=== PATIENT | female | born 1960 | race Caucasian/White ===

== ENCOUNTER 2018-02-23 07:49 | Inpatient (IN) ==
[2018-02-23] MEDS ORDERED: KETOROLAC TROMETHAMINE 60 MG/2 ML VIAL IM ONE ×2 (08:25→08:27)
--- NOTE | 2018-02-23 08:28 | ERNOTE ---
Back Pain ER HPI Presenting Symptoms: other - right flank pain Time Seen by Provider: 02/23/18 08:03 Source: patient Exam Limitations: no limitations Immunizations: IMMUNIZATION HX Immunizations Up to Date Yes History of Influenza Vaccine No Hx Pneumococcal Vaccination No Allergies/Adverse Reactions: Allergies morphine Allergy (Severe, Verified 02/23/18 08:04) Hives Home Medications: HOME MEDICATIONS Lisinopril [Zestril] 40 mg PO DAILY 11/22/13 [Last Taken 09/18/14] Metoprolol Succinate [Toprol Xl] 25 mg PO DAILY 11/22/13 [Last Taken 09/18/14] Levothyroxine Sodium 06/05/14 [Last Taken 09/18/14] Azithromycin 02/23/18 [Last Taken Unknown] Prednisone 02/23/18 [Last Taken Unknown] Narrative: An hour or so before arrival to the ER patient developed sudden right flank pain and she noticed blood in urine. She rates the pain as well as moderate in severity and somewhat crampy in nature. Timing: Reports: intermittent Quality/Severity: Reports: moderate Location of pain: Reports: other - right flank Activities at Onset: Reports: none Recent Injury?: Reports: no Possible Precipitating Factor: Reports: none Modifying Factors - (Improves): Reports: nothing Modifying Factors - (Worsens): Reports: nothing Associated Symptoms: Denies: fever/chills, sweating Review of Systems - Review of Systems Constitutional: Present: See HPI EYE: Present: no symptoms reported ENT: Present: no symptoms reported Respiratory: Present: no symptoms reported Cardiology: Present: no symptoms reported Gastrointestinal/Abdominal: Present: no symptoms reported Genitourinary: Present: See HPI Musculoskeletal: Present: no symptoms reported Skin: Present: no symptoms reported Neurological: Present: no symptoms reported Endocrine: Present: no symptoms reported Hematologic/Lymphatic: Present: no symptoms reported Psych: Present: no symptoms reported Medical History (Last Updated 02/23/18 @ 08:03 by Bob Alberto RN) H/O: hysterectomy History of appendectomy Hypertension Hypothyroidism Low vitamin D level Previous back surgery Renal calculi Social History: Preferred Language Senegalese Do you have any catholic or Yes: yazidism cultural preference? Smoking Status Current every day smoker Have you smoked in the past 12 Yes months Abuse History No History of abuse Psych History No pertinent hx Alcohol Use rarely Drug Use none Physical Exam - Physical Exam General Appearance: Present: wd/wn, alert, moderate distress Head Exam: Present: normal inspection, no evidence of injury Eye Exam: Normal inspection: bilateral, PERRL: bilateral Ears, Nose, Throat: Present: normal ENT inspection, H, normal pharynx Neck: Present: normal inspection, nontender Respiratory: Present: no respiratory distress, normal breath sounds, no accessory muscle use, chest nontender, lungs clear Cardiovascular/Chest: Present: regular rate, rhythm, no murmur, normal peripheral pulses Gastrointestinal/Abdominal: Present: normal bowel sounds, nontender, nondistended, soft, no organomegaly Rectal Exam: Present: deferred Back Exam: Present: normal range of motion, CVA tenderness (R) Extremity Exam: Present: normal inspection, non-tender, no edema, normal range of motion Neurological Exam: Present: alert, oriented, normal mood/affect Skin Exam: Present: normal color, warm/dry Lymphatic Exam: Present: no adenopathy ED Progress - Results and Orders Patient's Lab Results:: I have reviewed the patient's lab results. - Vital Signs Patient's Vital Signs:: I have reviewed the patient's vital signs. Vital Signs: Vital Signs 02/23/18 07:57 Temperature 36.7 C Pulse Rate 56 L Respiratory Rate 14 Blood Pressure 180/84 H O2 Sat by Pulse Oximetry 98 - CT/Ultrasound CT/Ultrasound Narrative: CT of the abdomen and pelvis was reviewed by me - Progress/Reassessment Chief Complaint: Back Pain Plan - Plan Plan: I discussed the case with urology as well as the on-call hospitalist and the patient will be admitted to an observation bed for hydration, pain control and IV antibiotics. Patient appears to have an infected stone in the right ureter and an obstruction secondary to the stone. Patient will most likely get a stent in her right ureter tomorrow after we have 24 hours of antibiotics on board. Departure Clinical Impression: Acute pyelonephritis, Kidney stone on right side, Ureteral obstruction, right - Departure Disposition: Still a patient Condition: Fair Referrals: Sandie Haji, [employer] [Primary Care Provider] -
[2018-02-23 09:11] LABS: Urine Bilirubin Negative (NEGATIVE); Urine Blood 250 /ul (NEGATIVE); Urine Ketone Negative (NEGATIVE); Urine Specific Gravity >=1.030 SP.GR. (1.005-1.010); Urine Urobilinogen Normal (NORMAL)
[2018-02-23 09:16] LABS: Urine Color Red
[2018-02-23 09:17] LABS: Urine Appearance Bloody (CLEAR); Urine Bacteria 2+; Urine Nitrite Positive (NEGATIVE); Urine Protein 500 mg/dL (NEGATIVE); Urine RBC >50 /hpf (0-5)
[2018-02-23] MEDS ORDERED: NORMAL SALINE 1,000 ML IV ONE (11:14)
[2018-02-23 11:40] LABS: Hematocrit 42.4 % (37.0-47.0); Hemoglobin 13.9 gm/dL (12.5-16.0); Mean Cell Volume 94.2 fl (78-100); Mean Corpuscular Hemoglobin 30.9 pg (27-31); Mean Corpuscular Hgb Conc 32.8 g/dl (32-36); Mean Platelet Volume 10.6 fl (8-12.5); Neutrophil # 4.9 K/mm3 (1.3-6.0); Platelet Count 272 K/mm3 (150-450); Red Cell Distribution Width 13.2 % (11.5-14.0); White Blood Count 8.5 K/mm3 (4.0-10.5)
[2018-02-23 11:59] LABS: Albumin * 3.8 gm/dl (3.4-5.0); Anion Gap 11.4 mmol/L (6.8-13.8); BUN/Creatinine Ratio 27.3 (9.0-21.6); Bilirubin, Total 0.2 mg/dL (0.0-1.1); Calcium * 9.2 mg/dL (7.9-10.9); Carbon Dioxide 30.3 mmol/L (24-32.6); Potassium 3.7 mmol/L (3.4-4.6); Total Protein 7.4 gm/dL (6.2-8.2)
[2018-02-23] MEDS: traMADol HCL 50 MG TABLET PO PRN ×2 (15:38→23:55)
[2018-02-23] MEDS: hydrALAZINE HCL 20 MG/ML VIAL IV PRN (15:46)
[2018-02-23] MEDS: ENOXAPARIN SODIUM 40 MG/0.4 ML SYRG SC SCH (16:59)
--- NOTE | 2018-02-23 20:45 | HP ---
Chief Complaint - Chief Complaint Date of Service: 02/23/18 Time of Service: 14:44 Chief Complaint: flank pain History of Present Illness: 57 year old female presented to the ER with sudden onset R sided flank pain earlier in the day. She also noticed blood in her urine not long after the pain began. She had a CT scan of the abdomen in the ER showing a large obstructing stone in the R ureter at the ureteropelvic junction. Urology was consulted from the ER who plans to place a stent tomorrow morning. They wanted her to get two doses of rocephin in prior to the stenting. She denied urinary symptoms other than suprapubic pain. Her ua in the ER was consistent with acute cystitis with hematuria. Her pain when seen was a 7 out of 10. She has a hx of HTN, hypothyroidism, and prior renal calculi. She also stated that she takes norco for migraines. She took her medication this morning. Medical History (Last Updated 02/23/18 @ 12:53 by Lorena Vidal RN) Renal calculi Hypertension Hypothyroidism Low vitamin D level Surgical History: Surgical History (Last Updated 02/23/18 @ 14:23 by Lorena Vidal RN) History of appendectomy History of hysterectomy Previous back surgery Family History: Family History (Last Updated 02/23/18 @ 12:42 by Lorena Vidal RN) Father Mother Diabetes CHF (congestive heart failure) Social History: Patient Lives/Resources With Spouse Utilized Occupation [employer]; [employer] leader Preferred Language Pashto Do you have any druze or Yes: Muslim cultural preference? Smoking Status Current every day smoker Have you smoked in the past 12 Yes months Do you dip or chew tobacco No Abuse History No History of abuse Psych History No pertinent hx Alcohol Use rarely Drug Use none Review Of Systems (GEN) - Review of Systems Generalized/Overall Review: Present: No Symptoms Reported EENTM: Present: No Symptoms Reported Respiratory: Present: No Symptoms Reported Cardiac: Present: No Symptoms Reported Abdominal: Present: No Symptoms Reported Genitourinary: Present: Hematuria Musculoskeletal: Present: Back Pain - Right sided pain Neurological: Present: No Symptoms Reported Skin: Present: No Symptoms Reported Endocrine: Present: No Symptoms Reported Immunizations: IMMUNIZATION HX Immunizations Up to Date Yes History of Influenza Vaccine No Hx Pneumococcal Vaccination No Allergies/Adverse Reactions: Allergies Allergy/AdvReac Type Severity Reaction Status Date / Time morphine Allergy Severe Hives Verified 02/23/18 08:04 Home Medications: HOME MEDICATIONS Lisinopril [Zestril] 40 mg PO DAILY 11/22/13 [Last Taken 09/18/14] Levothyroxine Sodium [Synthroid] 25 mcg PO DAILY 06/05/14 [Last Taken 09/18/14] Azithromycin [Zithromax] 500 mg PO DAILY 02/23/18 [Last Taken Unknown] Metoprolol Succinate 200 mg PO DAILY 02/23/18 [Last Taken Unknown] predniSONE [Prednisone] 10 mg PO DAILY 02/23/18 [Last Taken Unknown] Exam - Exam Vital Signs: Vital Signs - Last Taken Temp 36.3 C 02/23/18 12:23 Pulse 63 02/23/18 16:20 Resp 14 02/23/18 12:23 BP 166/83 H 02/23/18 16:20 Pulse Ox 97 02/23/18 12:23 Constitutional: Present: Alert, Oriented x3, Moderate distress Neck: Present: non-tender, full range of motion, supple Back Exam: Present: CVA tenderness (R) Respiratory: Present: lungs clear, normal breath sounds Cardiovascular/Chest: Present: normal peripheral pulses, regular rate, rhythm, no edema Abdomen: Present: Normal bowel sounds, soft, CVA tenderness - R, suprapubic tenderness /Rectal: Present: Exam deferred Skin Exam: Present: normal color, warm/dry Appearance: Present: appropriate appearance, appropriate insight Eye contact: Present: cooperative, good eye contact, normal speech Thoughts: Present: normal thought pattern, normal mood /affect Diagnostic Studies: Abnormal Lab Results 02/23/18 02/23/18 02/23/18 Range/Units 08:59 11:23 11:23 Immature Gran % (Auto) 0.60 H (0.001-0.429) % Immature Gran # (Auto) 0.05 H (0.000-0.0310) K/mm3 BUN/Creatinine Ratio 27.3 H (9.0-21.6) Urine Protein 500 H (NEGATIVE) mg/dL Urine Blood 250 H (NEGATIVE) /ul Urine Nitrate Positive H (NEGATIVE) Prot Sulfosalicylic Acd 3+ H (0) mg/dL Ur Leukocyte Esterase 25 H (NEGATIVE) /ul Urine RBC >50 H (0-5) /hpf Urine WBC 10-25 H (0-5) /hpf Ur Epithelial Cells 5-10 H (0-5) /hpf Urine Bacteria 2+ H (NONE) Laboratory Results WBC 8.5 K/mm3 (4.0-10.5) 02/23/18 11:23 RBC 4.50 M/mm3 (4.2-5.4) 02/23/18 11:23 Hgb 13.9 gm/dL (12.5-16.0) 02/23/18 11:23 Hct 42.4 % (37.0-47.0) 02/23/18 11:23 MCV 94.2 fl (78-100) 02/23/18 11:23 MCH 30.9 pg (27-31) 02/23/18 11:23 MCHC 32.8 g/dl (32-36) 02/23/18 11:23 RDW 13.2 % (11.5-14.0) 02/23/18 11:23 Plt Count 272 K/mm3 (150-450) 02/23/18 11:23 MPV 10.6 fl (8-12.5) 02/23/18 11:23 Immature Gran % (Auto) 0.60 % (0.001-0.429) H 02/23/18 11:23 Immature Gran # (Auto) 0.05 K/mm3 (0.000-0.0310) H 02/23/18 11:23 Neutrophils % 57.0 % (42-75.0) 02/23/18 11:23 Lymphocytes % 35.4 % (20-51) 02/23/18 11:23 Monocytes % 5.8 % (0.0-9) 02/23/18 11:23 Eosinophils % 0.6 % (0.0-3.0) 02/23/18 11:23 Basophils % 0.6 % (0.0-1.0) 02/23/18 11:23 Nucleated RBC % 0.0 k/mm3 (0-1) 02/23/18 11:23 Neutrophils # 4.9 K/mm3 (1.3-6.0) 02/23/18 11:23 Lymphocytes # 3.02 k/mm3 (1.5-3.5) 02/23/18 11:23 Monocytes # 0.5 k/mm3 (0.0-1.0) 02/23/18 11:23 Eosinophils # 0.1 k/mm3 (0.0-0.7) 02/23/18 11:23 Absolute Basophils 0.1 k/mm3 (0.0-0.1) 02/23/18 11:23 Sodium 140 mmol/L (132-142) 02/23/18 11:23 Plasma Sodium 140 mmol/L (130-142) 02/23/18 11:23 Potassium 3.7 mmol/L (3.4-4.6) 02/23/18 11:23 Chloride 102 mmol/L (97-106) 02/23/18 11:23 Carbon Dioxide 30.3 mmol/L (24-32.6) 02/23/18 11:23 Anion Gap 11.4 mmol/L (6.8-13.8) 02/23/18 11:23 BUN 21 mg/dL (3-23) 02/23/18 11:23 Creatinine 0.77 mg/dL (0.4-1.4) 02/23/18 11:23 Est GFR (Non-Af Amer) 82 mL/min (60-130) 02/23/18 11:23 BUN/Creatinine Ratio 27.3 (9.0-21.6) H 02/23/18 11:23 Random Glucose 108 mg/dL (70-110) 02/23/18 11:23 Lactic Acid, Venous 0.5 mmol/L (0.4-2.0) 02/23/18 11:23 Calcium 9.2 mg/dL (7.9-10.9) 02/23/18 11:23 Calcium Adj for Albumin 9.0 mg/dL (8.4-10.2) 02/23/18 11:23 Total Bilirubin 0.2 mg/dL (0.0-1.1) 02/23/18 11:23 AST 15 U/L (0-48) 02/23/18 11:23 ALT 28 U/L (19-67) 02/23/18 11:23 Alkaline Phosphatase 66 U/L (50-170) 02/23/18 11:23 Total Protein 7.4 gm/dL (6.2-8.2) 02/23/18 11:23 Albumin 3.8 gm/dl (3.4-5.0) 02/23/18 11:23 Urine Color Red 02/23/18 08:59 Urine Appearance Bloody (CLEAR) 02/23/18 08:59 Urine pH 6.0 pH (5.0-7.0) 02/23/18 08:59 Ur Specific Leslie >=1.030 SP.GR. (1.005-1.010) 02/23/18 08:59 Urine Protein 500 mg/dL (NEGATIVE) H 02/23/18 08:59 Urine Glucose (UA) Negative mg/dL (NEGATIVE) 02/23/18 08:59 Urine Ketones Negative mg/dL (NEGATIVE) 02/23/18 08:59 Urine Blood 250 /ul (NEGATIVE) H 02/23/18 08:59 Urine Nitrate Positive (NEGATIVE) H 02/23/18 08:59 Urine Bilirubin Negative mg/dl (NEGATIVE) 02/23/18 08:59 Prot Sulfosalicylic Acd 3+ mg/dL (0) H 02/23/18 08:59 Urine Urobilinogen Normal EU/dl (NORMAL) 02/23/18 08:59 Ur Leukocyte Esterase 25 /ul (NEGATIVE) H 02/23/18 08:59 Urine RBC >50 /hpf (0-5) H 02/23/18 08:59 Urine WBC 10-25 /hpf (0-5) H 02/23/18 08:59 Ur Epithelial Cells 5-10 /hpf (0-5) H 02/23/18 08:59 Urine Bacteria 2+ (NONE) H 02/23/18 08:59 Urine Culture Comments Culture to follow 02/23/18 08:59 Assessment/Plan - Assessment/Plan (1) Kidney stone on right side Assessment: Obstructive nephropathy from large kidney stone on the right at ureteropelvic junction. Patient started on rocephin, will continue. Urology to see tomorrow for stenting. Urine and blood cultures pending. Problem: Acute (2) Acute cystitis with hematuria Assessment: On rocephon. Urine cultures pending. Problem: Acute (3) HTN (hypertension) Assessment: Restarted her home medications. Will put hydralazine IV PRN as needed as her BP has been elevated since arrival. Will monitor and adjust as needed Problem: Chronic (4) Hypothyroidism Assessment: Continue levothyroxine. Problem: Chronic
[2018-02-23] MEDS: NORMAL SALINE 1,000 ML IV PRN (20:51)
[2018-02-24] MEDS: NORMAL SALINE 1,000 ML IV PRN ×4 (05:00→23:29)
--- NOTE | 2018-02-24 05:59 | CONS ---
HPI - General Narrative: 57-year-old female with right sided flank pain and an abnormal urinalysis admitted for IV pain and nausea control as well as antibiotics out of concern for possible UTI. Urine was voided. 02/23 CT scan FM: Left 2-3 mm upper pole, faint 7-8 mm right proximal ureteral with hydroureteronephrosis. Prostate small, bladder decompressed. Location: Right flank Duration: Yesterday Severity/Stage: Was severe now mild to moderate Associated Sx's: Some subjective chills, flank pain and nausea Modifying factors: Better with pain medicine although still symptomatic Quality: Colicky past medical history: Stones, hypertension, not diabetic Past surgical history: No prior stone surgery Family history: Noncontributory Social history: Smoker Review of systems: General: subjective fevers and chills whenpain was severe Lungs: smoker, occasional cough, no active shortness of breath Heart: no chest pain GI: did have nausea Endocrine: Nondiabetic Musculoskeletal: Some aches and pains : no gross hematuria 14 point review of systems otherwise negative, important positives noted. - History of Present Illness Allergies/Adverse Reactions: Allergies morphine Allergy (Severe, Verified 02/23/18 08:04) Hives Home Medications: Home Medications Medication Instructions Recorded Last Taken Lisinopril [Zestril] 40 mg PO DAILY 11/22/13 09/18/14 Levothyroxine Sodium [Synthroid] 25 mcg PO DAILY 06/05/14 09/18/14 Azithromycin [Zithromax] 500 mg PO DAILY 02/23/18 Unknown Metoprolol Succinate 200 mg PO DAILY 02/23/18 Unknown predniSONE [Prednisone] 10 mg PO DAILY 02/23/18 Unknown Procedures Application of splint (11/22/13) Dressing of Left Finger using Bandage (11/24/15) Laparoscopy (08/06/01) Local excision of lesion or tissue of bone, other bones (01/10/04) Other dilation and curettage (08/06/01) Medications - Medications Current Medications: Current Medications Enoxaparin Sodium (Lovenox) 40 mg SC Q24H JANEEN Stop: 03/25/18 15:16 Last Admin: 02/23/18 16:59 Dose: Not Given Hydralazine HCl (Apresoline) 20 mg IV [id number] PRN PRN Reason: Hypertension Stop: 03/25/18 15:18 Last Admin: 02/23/18 15:46 Dose: 20 mg Sodium Chloride (Sodium Chloride 0.9%) 1,000 mls @ 125 mls/hr IV .Q8H PRN PRN Reason: HYDRATION Stop: 03/25/18 20:45 Last Admin: 02/24/18 05:00 Dose: 125 mls/hr Tramadol HCl (Ultram) 50 mg PO Q6H PRN PRN Reason: Pain Stop: 03/25/18 15:09 Last Admin: 02/23/18 23:55 Dose: 50 mg Physical Examination - Exam Vital Signs: Vital Signs - Last Taken Temp 97.7 F 02/24/18 04:19 Pulse 56 L 02/24/18 04:19 Resp 16 02/24/18 04:19 BP 160/76 H 02/24/18 04:19 Pulse Ox 95 02/24/18 04:19 O2 Oxygen Delivery Method Room Air Comprehensive Narative: 02/24/18 10:32 General: Nontoxic, not in severe distress currently, looks a little uncomfortable, healthy-appearing Psych: Alert and oriented, mentating well HEENT: EOM grossly intact, no scleral icterus Lungs: Respirations unlabored, clear Abdomen: Benign, soft, no peritoneal signs Neuro: Laying in bed but no focal deficits,, sensation intact Extremities: Moves all 4, good findings dexterity, warm well-perfused Heart: Regular, no JVD Skin: No obvious rash or bruising on exposed skin Back: Mild right sided CVA tenderness, no left - Results and Findings: Narrative: #1 obstructing right stone in the setting of possible infection: Patient has been on antibiotics clinically looks a bit better, stone is large. Trial of passage a little risky with the onboard infection and size of stone with roughly 20% passage rate. Options available today include cystoscopy with retrogrades with attempted right ureteroscopy with laser/basket depending on intraoperative findings. Risks include bleeding/infection including small potential for sepsis/injury to ureter including a avulsion/stricture/perforation and typical stent symptoms all discussed. Patient opting to proceed with intervention I do not disagree. She has been nothing by mouth. She has been on broad-spectrum antibiotics. More than likely will stay overnight to make sure she does not take a step backwards after procedure. I did inform her if evidence of infection behind stone likely to simply stent come back another day same scenario if ureter narrow. Lab/Microbiology results last 24 hrs: Abnormal/Pending Laboratory Last 24 HRS 02/23/18 02/23/18 02/23/18 11:23 11:23 08:59 Immature Gran % (Auto) 0.60 H Immature Gran # (Auto) 0.05 H BUN/Creatinine Ratio 27.3 H Urine Protein 500 H Urine Blood 250 H Urine Nitrate Positive H Prot Sulfosalicylic Acd 3+ H Ur Leukocyte Esterase 25 H Urine RBC >50 H Urine WBC 10-25 H Ur Epithelial Cells 5-10 H Urine Bacteria 2+ H - Assessments/Findings (1) Kidney stone on right side Problem: Acute
[2018-02-24] MEDS: LEVOTHYROXINE SODIUM 25 MCG TABLET PO SCH (06:46)
[2018-02-24] MEDS: traMADol HCL 50 MG TABLET PO PRN ×2 (06:46→14:58)
[2018-02-24] MEDS: ONDANSETRON HCL/PF 2 MG/ML VIAL IV PRN ×2 (08:50→14:58)
[2018-02-24] MEDS: METOPROLOL SUCCINATE 100 MG TABLET.SA PO SCH (09:24)
[2018-02-24] MEDS: LISINOPRIL 40 MG TABLET PO SCH (09:24)
--- NOTE | 2018-02-24 11:27 | ANES ---
Anesthesia Pre Procedure Eval Vitals/Labs: Last Vital Signs Temp 36.6 C 02/24/18 07:21 Pulse 54 L 02/24/18 09:24 Resp 18 02/24/18 07:21 BP 180/82 H 02/24/18 09:24 Pulse Ox 93 02/24/18 07:21 HOME MEDICATIONS Lisinopril [Zestril] 40 mg PO DAILY 11/22/13 [Last Taken 09/18/14] Levothyroxine Sodium [Synthroid] 25 mcg PO DAILY 06/05/14 [Last Taken 09/18/14] Azithromycin [Zithromax] 500 mg PO DAILY 02/23/18 [Last Taken Unknown] Metoprolol Succinate 200 mg PO DAILY 02/23/18 [Last Taken Unknown] predniSONE [Prednisone] 10 mg PO DAILY 02/23/18 [Last Taken Unknown] Allergies/Adverse Reactions: Allergies Allergy/AdvReac Type Severity Reaction Status Date / Time morphine Allergy Severe Hives Verified 02/23/18 08:04 - Planned Procedure Planned Procedure: PYELONEPHRITIS,KIDNEY STONE OBSTRUCTION Medication List Reviewed:: Yes Allergies Verified: Yes Medical History (Last Reviewed 02/24/18 @ 11:26 by Prakash Rodriguez CRNA) Renal calculi Hypertension Hypothyroidism Low vitamin D level Surgical History (Last Reviewed 02/24/18 @ 11:27 by Prakash Rodriguez CRNA) History of appendectomy History of hysterectomy Previous back surgery Family History (Last Reviewed 02/24/18 @ 11:27 by Prakash Rodriguez CRNA) Father Mother Diabetes CHF (congestive heart failure) - Family Anesthesia History Family History:: no untoward family reactions to anesthesia - Airway/Neck/Teeth Teeth Condition: Intact Neck Exam: full range of motion, normal inspection Mallampatti Score: 1 Thyromental (T-M) distance: > 6 cm Mandibulo Hyoid distance: > 3 cm - Respiratory Respiratory: lungs clear, no respiratory distress Smoking Status: Current every day smoker Discussed smoking cessation including day of surgery: Yes Sleep Apnea currently treated: No Sleep Apnea by current assessment: No - Cardiovascular Patient History - Cardiac/Respiratory: Hypertension Tolerates Activity: Fair Heart Sounds: S1 & S2, Regular - Anesthesia Assessment and Plan ASA Class: PS, II Anesthesia Type Plan: General LMA Planned difficult intubation/equipment available: No
--- NOTE | 2018-02-24 13:42 | OR ---
Operative Report - Dictated Report Narrative: Location: Main OR Anesthesia: General Surgeon: Dr. Carreon Preoperative diagnosis: Right proximal ureteral stone(s) Postoperative diagnosis: Same , narrowed proximal ureters bilaterally, almost UPJ like finding on the right Procedure: #1 Cystoscopy with aspiration for culture and Bilateral retrograde pyelograms #2 Right stone manipulation without removal and placement 6 by multi length double j stent Indications: 57-year-old female large 8 mm proximal ureteral calculus possible infection. Maintained on antibiotics we discussed options today elected to proceed with above-mentioned procedure as a means to try and take care of stone Description: Consent obtained. Patient brought to the operating room where general endotracheal anesthesia was induced. Placed in the dorsal lithotomy position. Prepped and draped. Timeout taken. Rigid cystoscope introduced into the bladder with ease and quick cystoscopy revealed no tumors, stones or suspicious lesions . Truthfully bladder did not look inflamed or infected without debris. Aspiration for culture. Bilateral retrogrades obtained and interpreted by Dr. Kirk. Left ureter identified intubated with 5 Maldivian catheter and left retrograde obtained. 5-7 mL of Isovue was injected. Distal, mid and proximal ureter delicate without filling defects or hydronephrosis. The caliber of the proximal ureter was a bit narrow in terms of being able to proceed with ureteroscopy. Proximal collecting system nonhydronephrotic, delicate calyces, no filling defects. Essentially normal retrograde. Prompt drainage upon removal of catheter. . Right ureter identified intubated with 5 Maldivian catheter and right retrograde obtained. Distal and mid ureter normal caliber no filling defects, proximal ureter with similar findings to the opposite side with the exception that there was a filling defect in the narrowing near the level of the UPJ followed by hydronephrosis on the backside. Can't tell if the narrowing is a true UPJ or if the stone cause the narrowing. Tried to pass a Super Stiff wire up past the stone could not do so. I advanced the 5 Maldivian catheter up to the stone after a few attempts I was able to get the wire past. 5 Maldivian catheter was then used to manipulate the stone into the renal pelvis with prompt drainage of hydronephrotic urine but no significant debris. Urine aspirated through the 5 Maldivian catheter also sent for culture but did not look floridly infected. Caliber of ureter marginal for ureteroscopy but I felt it was worth trying. Over the Super Stiff wire ureteral access sheath was advanced. I'm a little bit of resistance at the ureteric orifice but this was bypassed however in the distal ureter below the pelvic vessels the resistance increased. Tried with slow constant pressure and tension on the wire to get higher but I did not like the way things felt and given caliber of ureter seen on the retrogrades are felt that was in the patient's best interest to allow for passive dilation so as to minimize risk to ureter. Over the Super Stiff wire 6 by multi length double-J stent was then placed over the safety wire under fluoroscopic guidance with good curls in the kidney and bladder. Specimen: Urine from bladder and right kidney for culture EBL: 0 ml Condition: tolerated procedure Important findings: No obvious evidence of infection. Obstructing right proximal stone post successful manipulation with 6 Maldivian stenting. Narrow proximal ureters bilaterally Follow-up: Next Thursday in [place] in the OR for cystoscopy with right stent removal, right ureteroscopy with laser/basket, possible ureteral balloon dilation, possible stent replacement.
--- NOTE | 2018-02-24 14:13 | ANES ---
Post Anesthesia Discharge - Transfer of Care Transfer of Care handoff given to nurse: Yes - Discharge from PACU Discharge from PACU when meets criteria: Yes
--- NOTE | 2018-02-24 14:14 | ANES ---
Post Anesthesia Assessment - Vital Signs Vitals: Last Vital Signs Temp 36.3 C 02/24/18 14:10 Pulse 58 L 02/24/18 14:10 Resp 16 02/24/18 14:10 BP 153/80 H 02/24/18 14:10 Pulse Ox 91 L 02/24/18 14:10 Airway Patency: Normal - Mental Status Level Of Consciousness: Awake - Pain Level Pain Score: 0 - N/V Assessment Nausea/Vomiting Presence: None Dehydration:: No
[2018-02-24] MEDS: ENOXAPARIN SODIUM 40 MG/0.4 ML SYRG SC SCH (15:01)
[2018-02-24] MEDS: hydrALAZINE HCL 20 MG/ML VIAL IV PRN (15:07)
[2018-02-24] MEDS ORDERED: PROMETHAZINE HCL 25 MG TABLET PO PRN (16:49)
--- NOTE | 2018-02-24 17:12 | PN ---
Subjective - Date and Time Seen Date: 02/24/18 Time: 08:00 Subjective Narrative: Pt did well overnight. She remains afebrile and her pain has been well controlled. She is scheduled to go into the OR this afternoon. Her BP has been elevated still but she only received 1 dose of the PRN medication. Discussed this with the nurse on today which she stated she would take care of. Objective - Review of Systems Generalized/Overall Review: Reports: No Symptoms Reported EENTM: Reports: No Symptoms Reported Respiratory: Reports: No Symptoms Reported Cardiac: Reports: No Symptoms Reported Abdominal: Reports: Nausea Genitourinary Symptoms: Reports: Hematuria. Denies: Burning, Itching, Urgency, Frequency Musculoskeletal Complaints: Reports: Other - bladder and side pain Skin: Reports: No Symptoms Reported Endocrine: Reports: No Symptoms Reported - Vitals Vitals: Last Vital Signs Temp 36.3 C 02/24/18 14:10 Pulse 71 02/24/18 15:55 Resp 18 02/24/18 15:55 BP 131/68 02/24/18 15:55 Pulse Ox 96 02/24/18 15:55 - Exam Constitutional: Present: Alert, Oriented x3, Cooperative Neck: Present: non-tender, full range of motion Breasts: Present: Exam deferred Respiratory: Present: chest non-tender, lungs clear, normal breath sounds, no respiratory distress Cardiovascular/Chest: Present: normal peripheral pulses, regular rate, rhythm, no edema Abdomen: Present: CVA tenderness - Right side, suprapubic tenderness Skin Exam: Present: normal color, warm/dry Appearance: Present: appropriate appearance Eye contact: Present: cooperative, good eye contact Thoughts: Present: normal thought pattern, normal mood /affect Assessment/Plan - Problems/Diagnosis (1) Kidney stone on right side Problem: Acute Narrative: Patient to be stinted this afternoon with Dr. Perales. Will continue the IV antibiotics until this is discussed with her urologist or changed by him. Her urine cx came back showing no growth (preliminary), I suspect is was just a dirty urine and that she might not actually have an infection. Will continue the tramadol as needed since this has moderately controlled her pain. (2) Acute cystitis with hematuria Problem: Suspected Narrative: Unsure as to whether or not she actually has an infection or if the urine was just dirty. Waiting for final result on cx. Preliminary had no growth. Blood cultures also have no growth utd. Patient continues to be afebrile and her initial labs wnl (aside from the UA) (3) HTN (hypertension) Problem: Chronic Qualifiers: Hypertension type: essential hypertension Qualified Code(s): I10 - Essential (primary) hypertension Narrative: This appears to be poorly controlled on her home regimen. She is requiring hydralazine to stay under 170 systolic. will wait to see how she does after the stinging as this may be part of the problem. Will adjust some medications if needed before she goes home, otherwise will continue with her home tx with added prns. (4) Hypothyroidism Problem: Chronic
[2018-02-25] MEDS: LEVOTHYROXINE SODIUM 25 MCG TABLET PO SCH (06:20)
[2018-02-25] MEDS: traMADol HCL 50 MG TABLET PO PRN (06:27)
[2018-02-25] MEDS: LISINOPRIL 40 MG TABLET PO SCH (08:34)
[2018-02-25] MEDS: METOPROLOL SUCCINATE 100 MG TABLET.SA PO SCH (08:34)
--- NOTE | 2018-02-25 08:59 | DS ---
(1) Kidney stone on right side Problem: Acute (2) Acute cystitis with hematuria Problem: Ruled-out (3) HTN (hypertension) Problem: Chronic Qualifiers: Hypertension type: essential hypertension Qualified Code(s): I10 - Essential (primary) hypertension (4) Hypothyroidism Problem: Chronic Description of Stay: Patient presented to the ER on 02/23 for sudden onset suprapubic and R flank pain. CT scan showed 8 mm obstructing stone in @ the right UP junction. Dr. Perales ( urology) was consulted who took the patient back on the for stent placement. Her lab work was fairly normal aside from a UA that likely was dirty. Her urine and blood cultures both negative for growth utd. She was started on Rocephin due to concern for pyelonephritis and will be sent home on per Dr. Perales. She is to follow up with him next Thursday for removal of the stone. Her BP was elevated throughout most of her stay prior to having the stent placed. Once her pain was better controlled, her pressures ranged in the 140s/ 80s for the last 18 hours which is significantly improved from prior to stent placement. She has not had to have any PRNs for the last 16 hours. No changes to her home regimen at this time but advised her to follow up with her PCP to discuss this. She states that she is fairly well controlled on her home medications. She has tolerated PO well for the last 12 hours. She was held overnight due to nausea/vomiting following the stent placement. She feels better aside from a headache now and is stable to go home. Procedures Performed: see notes below - stent placed in R ureter, see urology report Results and Findings: Pending Mircobiology Results 02/24/18 13:26 Urine,Catheterized Miscellaneous Culture - Preliminary No Growth 02/24/18 13:26 Urine,Catheterized Urine Culture - Preliminary No Growth 02/23/18 11:46 Blood Blood Culture - Preliminary NO GROWTH 24 HOURS 02/23/18 11:23 Blood Blood Culture - Preliminary NO GROWTH 24 HOURS Lab Pending Results 02/23/18 08:59: Urine Color Red, Urine Appearance Bloody, Urine pH 6.0, Ur Specific [place] >=1.030, Urine Protein 500 H, Urine Glucose (UA) Negative, Urine Ketones Negative, Urine Blood 250 H, Urine Nitrate Positive H, Urine Bilirubin Negative, Prot Sulfosalicylic Acd 3+ H, Urine Urobilinogen Normal, Ur Leukocyte Esterase 25 H, Urine RBC >50 H, Urine WBC 10-25 H, Ur Epithelial Cells 5-10 H, Urine Bacteria 2+ H, Urine Culture Comments Culture to follow 02/23/18 11:23: WBC 8.5, RBC 4.50, Hgb 13.9, Hct 42.4, MCV 94.2, MCH 30.9, MCHC 32.8, RDW 13.2, Plt Count 272, MPV 10.6, Immature Gran % (Auto) 0.60 H, Immature Gran # (Auto) 0.05 H, Neutrophils % 57.0, Lymphocytes % 35.4, Monocytes % 5.8, Eosinophils % 0.6, Basophils % 0.6, Nucleated RBC % 0.0, Neutrophils # 4.9, Lymphocytes # 3.02, Monocytes # 0.5, Eosinophils # 0.1, Absolute Basophils 0.1 02/23/18 11:23: Sodium 140, Plasma Sodium 140, Potassium 3.7, Chloride 102, Carbon Dioxide 30.3, Anion Gap 11.4, BUN 21, Creatinine 0.77, Est GFR (Non-Af Amer) 82, BUN/Creatinine Ratio 27.3 H, Random Glucose 108, Calcium 9.2, Calcium Adj for Albumin 9.0, Total Bilirubin 0.2, AST 15, ALT 28, Alkaline Phosphatase 66, Total Protein 7.4, Albumin 3.8 02/23/18 11:23: Lactic Acid, Venous 0.5 Discharge Location: Home Disposition: Home self-care Condition: Good Discharge Activity: Activity as tolerated Discharge Diet: General/regular food Referrals: Sandie Haji [employer] [Primary Care Provider] - Additional Patient Instructions (free text): Follow-up: Next Thursday in [place] in the OR for cystoscopy with right stent removal, right ureteroscopy with laser/basket, possible ureteral balloon dilation, possible stent replacement. Prescriptions (Any new or edited meds): Ciprofloxacin HCl [Cipro] 500 mg PO BID #14 tab HYDROmorphone HCL [Dilaudid] 2 mg PO Q8H PRN #24 tab PRN Reason: Severe Pain (Pain Scale 7-10) Oxybutynin Chloride [Ditropan] 5 mg PO BID #30 tab Polyethylene Glycol 3350 [Miralax] 17 gm PO DAILY PRN #510 gm PRN Reason: Constipation traMADol HCL [Tramadol HCl] 50 mg PO Q8H PRN #20 tablet PRN Reason: Mild Pain (Pain Scale 1-3) Complete Home Medications List: Complete Home Medication List: Lisinopril [Zestril] 40 mg PO DAILY 11/22/13 Levothyroxine Sodium [Synthroid] 25 mcg PO DAILY 06/05/14 Metoprolol Succinate 200 mg PO DAILY 02/23/18 predniSONE [Prednisone] 10 mg PO DAILY 02/23/18 Ciprofloxacin HCl [Cipro] 500 mg PO BID #14 tab 02/24/18 HYDROmorphone HCL [Dilaudid] 2 mg PO Q8H PRN #24 tab 02/24/18 Oxybutynin Chloride [Ditropan] 5 mg PO BID #30 tab 02/24/18 Polyethylene Glycol 3350 [Miralax] 17 gm PO DAILY PRN #510 gm 02/24/18 traMADol HCL [Tramadol HCl] 50 mg PO Q8H PRN #20 tablet 02/24/18
[2018-02-25 09:55] VITALS: BP 154/74
== END 2018-02-25 10:10 | disposition home or self-care (01) | DRG 694 ==
LOC: MS 07:49 → ER 07:49 → MS 12:13
PROVIDERS: ADMIT Family Medicine; ATTEND Family Medicine
CPT/HCPCS: 36415; 74176; 74450; 76000; 80053; 81001; 83605; 85025; 87040; 87070; 87086; 96372; 99285; C1769; J2405